=== PATIENT | male | born 1950 | race Caucasian/White ===

== ENCOUNTER 2017-06-20 10:58 | Emergency (ER) | payer OTHER ==
[~2017-06-20] VITALS: Ht 182.9 cm; Wt 82.0 kg
[2017-06-20 11:01] VITALS: BP 170/95; PULSE 99; RESP 16; TEMP 98.1; O2SAT 100
[2017-06-20] MEDS ORDERED: AMLO10CA PO (11:24)
[2017-06-20] MEDS ORDERED: ASPI81CH6 CHEW (11:24)
[2017-06-20] MEDS ORDERED: OMEP20TA93 PO (11:24)
[2017-06-20] MEDS ORDERED: PHENAZOPYRIDINE HCL 200 MG TAB PO ONE (11:30)
--- NOTE | 2017-06-20 11:31 | PD ---
HPI . Urinary symptoms Chief Complaint: Complaint Time Seen by Provider: 11:24 Travel History International Travel<30 days: No Contact w/Intl Traveler<30days: No Traveled to known affect area: No History of Present Illness HPI Patient presents with chief complaint of hematuria. Onset was yesterday. He also has urgency and dysuria. He is now passing clots today. He states that he is having to urinate every 15 minutes. He denies any sensation of a full bladder. He denies flank pain. He has not been a fever. He has had no associated nausea or vomiting. Medical history is significant for both BPH and prostate cancer. He is followed by a urologist in [place]. They are here on vacation. [facility] Past Medical History Hx Anticoagulant Therapy: Yes (2 BABY ASA DAILY) Cardiac Catheterization: Yes Cardiovascular Problems: Yes (STENT X 1) GERD: Yes Hypertension: Yes Past Surgical History Abdominal Surgery: Yes (hernia) Tonsillectomy: Yes Other Surgery: Yes (sinus) Social History Alcohol Use: No Tobacco Use: No Substance Use: No Allergies-Medications (Allergen,Severity, Reaction): Coded Allergies: No Known Allergies (Unverified , 06/20/17) Reported Meds & Prescriptions Reported Meds & Active Scripts Active Reported Aspirin Low Dose (Aspirin) 81 Mg Chew 162 Mg CHEW DAILY Omeprazole 20 Mg Tab 20 Mg PO DAILY Amlodipine-Benazepril 10-20 Mg Cap 1 Cap PO DAILY Review of Systems Except as stated in HPI: all other systems reviewed are Neg General / Constitutional: No: Fever, Chills Gastrointestinal: No: Nausea, Vomiting Genitourinary: Positive: Urgency, Frequency, Dysuria, Hematuria, No: Flank Pain Physical Exam Narrative GENERAL: Awake and alert and in no acute distress. SKIN: warm/dry. HEAD: Normocephalic. EYES: Pupils equal and round. No scleral icterus. No injection or drainage. ENT: No nasal bleeding or discharge. Mucous membranes pink and moist. NECK: Trachea midline. Full range of motion without pain.. CARDIOVASCULAR: Regular rate and rhythm. RESPIRATORY: No accessory muscle use. Clear to auscultation. Breath sounds equal bilaterally. GASTROINTESTINAL: Abdomen soft. Nontender. Bowel sounds present. Nondistended. : No CVA tenderness. MUSCULOSKELETAL: No obvious deformities. NEUROLOGICAL: Awake and alert. No obvious cranial nerve deficits. Motor grossly within normal limits. Normal speech. PSYCHIATRIC: Appropriate mood and affect; insight and judgment normal. Data Data Last Documented VS Vital Signs Date Time Temp Pulse Resp B/P (MAP) Pulse Ox O2 Delivery O2 Flow Rate FiO2 06/20/17 11:01 98.1 99 16 170/95 (120) 100 Orders Orders Urinalysis - C+S If Indicated (06/20/17 11:24) Phenazopyridine (Pyridium) (06/20/17 11:30) Urine Culture (06/20/17 11:30) Labs Laboratory Tests Test 06/20/17 11:30 Urine Collection Type CLEAN CATCH Urine Color RED Urine Turbidity CLOUDY Urine pH 7.5 Urine Specific [place] 1.015 Urine Protein 300 OR GREATER mg/dL Urine Glucose (UA) 250 mg/dL Urine Ketones 40 mg/dL Urine Occult Blood LARGE Urine Nitrite POS Urine Bilirubin NEG Urine Leukocyte Esterase LARGE Urine RBC INNUM /hpf Microscopic Urinalysis Comment CULTURE INDICATED MDM Medical Decision Making Medical Screen Exam Complete: Yes Emergency Medical Condition: Yes Differential Diagnosis Final differential diagnosis of urinary symptoms includes but is not limited to UTI, kidney stone, pyelonephritis, bacterial vaginosis, yeast infection, urinary retention Narrative Course This patient presents with hematuria, dysuria, urgency and frequency. He does have a history of BPH and prostate cancer. However, the most likely etiology of his acute symptoms is infection. I have given him a dose of Pyridium for his symptoms. UA is pending. UA>>large blood, + nitrite, large LE, innum RBCs The patient will be treated for a urinary tract infection. Diagnosis Primary Impression: Hematuria Qualified Codes: R31.0 - Gross hematuria Additional Impression: Urinary tract infection Qualified Codes: N30.01 - Acute cystitis with hematuria Patient Instructions: General Instructions, Urinary Tract Infection in Men (DC) Med/Other Pt SpecificInfo: Prescription(s) given Scripts Phenazopyridine (Pyridium) 100 Mg Tab 200 MG PO Q8H Y for DYSURIA, #10 TAB 0 Refills Prov: Audelia Horvath MD 06/20/17 Cephalexin (Keflex) 500 Mg Cap 500 MG PO Q8H for Infection, #30 CAP 0 Refills Prov: Audelia Horvath MD 06/20/17 Disposition: 01 DISCHARGE HOME Condition: Stable Audelia Horvath MD Jun 20, 2017 11:31
[2017-06-20 11:43] LABS: BLOOD, URINE LARGE (NEG); GLUCOSE,URINE 250 mg/dL (NEG); KETONE, URINE 40 mg/dL (NEG); NITRITE,URINE POS (NEG); PH, URINE 7.5 (5.0-8.5)
[2017-06-20 11:49] LABS: METHOD OF COLLECTION CLEAN CATCH
[2017-06-20 11:50] LABS: COMMENT (UR) CULTURE INDICATED; CULTURE IF INDICATED CULTURE INDICATED; RBC, URINE INNUM /hpf (0-3); URINE COLOR RED (YELLW/STRAW)
[2017-06-20] MEDS ORDERED: PHEN0.4T PO (12:04)
[2017-06-20] MEDS ORDERED: CEPH-460 PO (12:04)
== END 2017-06-20 12:24 | disposition home or self-care (01) ==
LOC: PHED 10:58
DX: N30.01 Acute cystitis with hematuria (principal); B96.89 Other specified bacterial agents as the cause of diseases classified elsewhere; I10 Essential (primary) hypertension; Z85.46 Personal history of malignant neoplasm of prostate
CPT/HCPCS: 81001; 87086; 99284